=== PATIENT | male | born 1970 | race Caucasian/White ===

== ENCOUNTER 2016-11-27 09:01 | Emergency (ER) | payer SELFPAY ==
--- NOTE | 2016-11-27 09:42 | ER Document Report ---
ED GI Bleed / Rectal Pain - General Information source: Patient - HPI Onset: This morning Quality of pain: No pain Rectal bleeding: Bloody diarrhea Associated symptoms: Other - see above <AYLIN BILLINGSLEY - Last Filed: 11/27/16 09:56> <CAPRI SHEPARD - Last Filed: 11/27/16 15:33> - General Chief Complaint: Rectal Bleeding Stated Complaint: RECTAL BLEEDING Time Seen by Provider: 11/27/16 09:13 Notes: Patient is a 46 year old male who presents to the ED with complaints of having a bowel movement this morning while at work that had clots of blood with it. Patient states yesterday he had nausea and had 3-4 episodes of diarrhea throughout the night and 1 this morning while he was at work. Patient states the blood in his stool is dark red and he had clots on top of his stool. Patient states he has ever had blood in his stool before. Patient denies abdominal or rectal pain. Patient adds that prior to having the episode of blood in his bowel movement he planned on coming in today anyway due to a pinched nerve in his neck. Patient states that he has had a pinched nerve in his neck since February of last year and saw a doctor while living in [place] who gave him a steroid injection that relieved the pain for approximately 6 weeks. Patient states the pain has recently been getting worse and he is not able to sleep secondary to the pain and the pain is exacerbated when sitting or laying down. Patient states the pain radiates down the left side of his neck and into his left shoulder down his left arm with associated numbness and tingling. Patient is requesting a steroid injection today while in the ED. Patient denies chest pain or SOB. (AYLIN BILLINGSLEY) - Related Data Allergies/Adverse Reactions: No Known Allergies Allergy (Verified 11/27/16 09:05) Past Medical History - General Information source: Patient - Social History Smoking Status: Current Every Day Smoker Chew tobacco use (# tins/day): No Smoking Education Provided: Yes Frequency of alcohol use: Occasional - approximately 2-3x per week Drug Abuse: None <AYLIN BILLINGSLEY - Last Filed: 11/27/16 09:56> - Social History Smoking Education Provided: Yes - 5 minutes was spent counseling this patient Family History: Reviewed & Not Pertinent <CAPRI SHEPARD - Last Filed: 11/27/16 15:33> Review of Systems - Review of Systems Constitutional: No symptoms reported EENT: No symptoms reported Cardiovascular: See HPI. denies: Chest pain Respiratory: See HPI. denies: Short of breath Gastrointestinal: See HPI, Diarrhea, Nausea, Blood streaked bowels, Rectal bleeding. denies: Abdominal pain, Other - rectal pain Genitourinary: No symptoms reported Male Genitourinary: No symptoms reported Musculoskeletal: See HPI, Neck pain - pinched nerve Skin: No symptoms reported Hematologic/Lymphatic: No symptoms reported Neurological/Psychological: See HPI, Numbness, Tingling <AYLIN BILLINGSLEY - Last Filed: 11/27/16 09:56> Physical Exam <AYLIN BILLINGSLEY - Last Filed: 11/27/16 09:56> <CAPRI SHEPARD - Last Filed: 11/27/16 15:33> - Vital signs Vitals: Temp Pulse Resp BP Pulse Ox 98.1 F 83 16 135/89 H 97 11/27/16 09:04 11/27/16 09:04 11/27/16 09:04 11/27/16 09:04 11/27/16 09:04 - Notes Notes: GENERAL: Alert, interacts well. No acute distress. HEAD: Normocephalic, atraumatic. EYES: Pupils equal, round, and reactive to light. Extraocular movements intact. ENT: Oral mucosa moist, tongue midline. NECK: Full range of motion. Supple. Trachea midline. LUNGS: Clear to auscultation bilaterally, no wheezes, rales, or rhonchi. No respiratory distress. HEART: Regular rate and rhythm. No murmurs, gallops, or rubs. ABDOMEN: Soft, non-tender. Non-distended. Bowel sounds present in all 4 quadrants. RECTAL: Chaperones by RN. No hemorrhoids, no active bleeding, no stool. EXTREMITIES: Moves all 4 extremities spontaneously. No edema. No cyanosis. Sensation, muscle strength and reflexes intact in bilateral upper extremities. NEUROLOGICAL: Alert and oriented x3. Normal speech. Biceps DTRs 2+ bilaterally. PSYCH: Normal affect, normal mood. SKIN: Warm, dry, normal turgor. No rashes or lesions noted (AYLIN BILLINGSLEY) Course <AYLIN BILLINGSLEY - Last Filed: 11/27/16 09:56> - Laboratory Result Diagrams: 11/27/16 09:57 11/27/16 09:57 <CAPRI SHEPARD - Last Filed: 11/27/16 15:33> - Re-evaluation Re-evalutation: 11/27/16 11:20 CBC shows mild anemia with a hemoglobin 13.1, grossly unremarkable, Hemoccult is negative. Discussed with patient that he will need to follow-up with a patient attendant or surgeon as an outpatient for colonoscopy to further investigate the cause of his rectal bleeding. At present as his blood pressure and heart rate are stable there is no hypotension and no tachycardia and he is only minimally anemic and there is no further rectal bleeding that at this time he does not need to be admitted to the hospital. Patient should return for further rectal bleeding, dizziness or syncope or any new or concerning symptoms. Regarding the patient's secondary complaint of the pain and numbness radiating down his left arm that has been going on for months to years patient will be given a steroid injection to try and relieve some of these symptoms, advised to follow-up with Dr. Reed Gomez from [facility] as they may be able to further advise him on other methods of pain control, also advised to consider following up with neurosurgery. No evidence of acute impingement that would require surgical intervention today. (CAPRI SHEPARD) - Vital Signs Vital signs: Temp Pulse Resp BP Pulse Ox 97.3 F 56 L 16 137/86 H 98 11/27/16 12:08 11/27/16 12:08 11/27/16 12:08 11/27/16 12:08 11/27/16 12:08 - Laboratory Laboratory results interpreted by me: 11/27/16 11/27/16 09:57 09:57 RBC 4.13 L Hgb 13.1 L RDW 15.3 H Glucose 121 H Discharge <AYLIN BILLINGSLEY - Last Filed: 11/27/16 09:56> <CAPRI SHEPARD - Last Filed: 11/27/16 15:33> - Discharge Clinical Impression: Rectal bleeding, Cervical radiculopathy, Pre-hypertension, Tobacco abuse, Tobacco abuse counseling Condition: Stable Disposition: HOME, SELF-CARE Additional Instructions: Today you did not have any further blood in your stool in the emergency department. Your hemoglobin (blood count) was essentially normal. There was no evidence of life-threatening bleeding today. It is very important that you follow-up with your primary care physician or a patient attendant or a surgeon as an outpatient. Any time you have blood in your stool it is a good idea to follow-up with somebody and consider a colonoscopy to make sure that there is not a polyp or some sort of tumor or cancer that is causing the bleeding. Please return should your bleeding worsen, should you develop dizziness or passing out. Please also return for any new or concerning symptoms. Today we did give you a steroid shot to help with the pain from the pinched nerve in your neck. It is also very important that you follow-up with somebody regarding this pinched nerve. They may wish to do an MRI, start her on physical therapy or use other methods to control your pain and prevent it from worsening. You could consider following up with the neurosurgeon, your primary care physician or Dr. Reed Gomez from [facility]. Forms: Elevated Blood Pressure, Smoking Cessation Education, Return to Work Referrals: REED GOMEZ MD [ACTIVE STAFF] - Follow up as needed [facility] [Provider Group] - Follow up as needed Scribe Attestation: 11/27/16 15:33 I personally performed the services described in the documentation, reviewed and edited the documentation which was dictated to the scribe in my presence, and it accurately records my words and actions. (CAPRI SHEPARD) Scribe Documentation - Scribe Written by Coretta:: coretta Alexandra, 11/27/2016, 0944 acting as scribe for :: Rikki <AYLIN BILLINGSLEY - Last Filed: 11/27/16 09:56>
[2016-11-27 10:14] LABS: ABSOLUTE BASOPHILS # (AUTO) 0.1 10^3/uL (0.0-0.2); ABSOLUTE EOSINOPHILS # (AUTO) 0.3 10^3/uL (0.0-0.6); ABSOLUTE LYMPHOCYTES (AUTO) 1.4 10^3/uL (0.5-4.7); ABSOLUTE MONOCYTES (AUTO) 0.7 10^3/uL (0.1-1.4); ABSOLUTE NEUT (AUTO) 7.6 10^3/uL (1.7-8.2); BASOPHILS % (AUTO) 0.9 % (0-2); EOSINOPHILS % (AUTO) 2.6 % (0-6); HEMATOCRIT 38.5 % (37.9-51.0); HEMOGLOBIN 13.1 g/dL (13.5-17.0); HGB HCT DIFFERENCE 0.8; MEAN CORPUSCULAR HEMOGLOBIN 31.6 pg (27.0-33.4); MEAN CORPUSCULAR HGB CONC 33.9 g/dL (32.0-36.0); MEAN CORPUSCULAR VOLUME 93 fl (80-97); MONOCYTES % (AUTO) 6.6 % (3-13); RED BLOOD COUNT 4.13 10^6/uL (4.35-5.55); RED CELL DISTRIBUTION WIDTH 15.3 % (11.5-14.0); SEGMENTED NEUTROPHILS % (AUTO) 75.9 % (42-78)
[2016-11-27 10:33] LABS: ALANINE AMINOTRANSFERASE 32 U/L (21-72); ALBUMIN 3.7 g/dL (3.5-5.0); ALKALINE PHOSPHATASE 63 U/L (38-126); ANION GAP 7 (5-19); ASPARTATE AMINO TRANSFERASE 26 U/L (17-59); BILIRUBIN,DIRECT 0.4 mg/dL (0.0-0.4); BILIRUBIN,TOTAL 0.5 mg/dL (0.2-1.3); BLOOD UREA NITROGEN 17 mg/dL (7-20); CALCIUM 9.4 mg/dL (8.4-10.2); CARBON DIOXIDE 29 mmol/L (22-30); CHLORIDE 104 mmol/L (98-107); CREATININE RESULT 0.89 mg/dL (0.52-1.25); GLUCOSE 121 mg/dL (75-110); POTASSIUM 4.4 mmol/L (3.6-5.0); SODIUM 139.8 mmol/L (137-145); TOTAL PROTEIN 6.7 g/dL (6.3-8.2)
[2016-11-27] MEDS ORDERED: DEXAMETHASONE SOD PHOS INJ 10 MG/1 ML VIAL IM ONE (11:19)
[2016-11-27 12:10] VITALS: BP 137/86
== END 2016-11-27 12:08 | disposition home or self-care (01) ==
LOC: ER 09:01
DX: K62.5 Hemorrhage of anus and rectum (principal); M54.12 Radiculopathy, cervical region; R03.0 Elevated blood-pressure reading, without diagnosis of hypertension; F17.200 Nicotine dependence, unspecified, uncomplicated; Z71.6 Tobacco abuse counseling; R19.7 Diarrhea, unspecified; R11.0 Nausea; R20.0 Anesthesia of skin; R20.2 Paresthesia of skin; D64.9 Anemia, unspecified
CPT/HCPCS: 99406; 99283; 96372; 36415; 85025; 82272; 80053; J1100